=== PATIENT | female | born 1995 | race African-American/Black ===

== ENCOUNTER 2016-06-30 23:29 | Inpatient (IN) | payer MEDICAID ==
[~2016-06-30] VITALS: Ht 149.9 cm; Wt 63.6 kg
[~2016-06-30 23:29] MED LIST: NO HOME MEDICATIONS; PRENATAL MVI; PROFERRIN ES12 MG PO
[2016-07-01] VITALS (38 sets, daily range): BP systolic 103–141; BP diastolic 57–93; PULSE 60–116; TEMP 97.9–98.5
[2016-07-01 00:38] LABS: BASO % 0.2 % (0.0-2.0); EOS % 0.3 % (0-4.0); GRAN # 7.9 (1.4-6.5); GRAN % 72.9 % (42.2-75.2); LYMPH # 1.9 (1.2-3.4); LYMPH % 17.5 % (20.0-51.0); MEAN CELL VOLUME 66 fl (80.0-100.0); MEAN CORPUSCULAR HGB CONC 32 g/dl (33.0-37.0); MEAN PLATELET VOLUME 11.1 fl (7.4-10.4); MONO # 0.9 (0.1-0.6); MONO % 8.5 % (1.7-9.3); PLATELET COUNT 373 K/mm3 (130-400); RED BLOOD COUNT 4.63 M/mm3 (4.10-5.30); REDCELL DISTRIBUTION WIDTH-CV 18.2 % (11.5-14.5); WHITE BLOOD COUNT 10.8 K/mm3 (4.8-10.8)
[2016-07-01 00:39] LABS: HEMATOCRIT 30.7 % (37.0-47.0); HEMOGLOBIN 9.9 g/dl (12.5-16.0); MEAN CORPUSCULAR HEMOGLOBIN 21 pg (27.0-31.0)
[2016-07-01] MEDS ORDERED: IRON325 MG PO (00:53)
[2016-07-02 07:00] VITALS: BP 110/66; PULSE 78; TEMP 98.9
[2016-07-02 08:21] LABS: HEMATOCRIT 28.1 % (37.0-47.0); HEMOGLOBIN 8.8 g/dl (12.5-16.0)
[2016-07-02 09:22] VITALS: BP 110/66; PULSE 78; TEMP 98.9
[2016-07-02] MEDS ORDERED: IBU600 MG PO (11:44)
[2016-07-02] MEDS ORDERED: PERCOCET 325 MG1 TA2 PO (11:44)
[2016-07-02 15:33] VITALS: BP 100/73; PULSE 83; TEMP 99
[2016-07-02 22:00] VITALS: BP 116/73; PULSE 75; TEMP 97.4
[2016-07-03 07:15] VITALS: BP 119/65; PULSE 62; TEMP 97.9
== END 2016-07-03 13:10 | disposition home or self-care (01) | DRG 775 ==
LOC: LDRO 23:29 → LDR 07-01 00:01 → OB 07-01 00:01
PROVIDERS: Obstetrics & Gynecology
PROC: 10E0XZZ Delivery of Products of Conception, External Approach (ICD-10-PCS; principal; 2016-07-01)
PROC: 0KQM0ZZ Repair Perineum Muscle, Open Approach (ICD-10-PCS; 2016-07-01)
DX: O99.02 Anemia complicating childbirth (principal); D57.3 Sickle-cell trait; D56.3 Thalassemia minor; O70.1 Second degree perineal laceration during delivery; Z3A.39 39 weeks gestation of pregnancy; Z37.0 Single live birth
CPT/HCPCS: J2590; J2795; J7120

== ENCOUNTER 2018-04-29 09:04 | Emergency (ER) | payer SELFPAY ==
[~2018-04-29] VITALS: Ht 149.9 cm; Wt 53.6 kg
[~2018-04-29 09:04] MED LIST changes: +IBU600 MG PO; +IRON325 MG PO; +PERCOCET 325 MG1 TA2 PO
[2018-04-29 09:07] VITALS: TEMP 98.9
[2018-04-29 09:30] LABS: BASO % 0.4 % (0.0-2.0); EOS % 0.5 % (0-4.0); GRAN # 5.4 (1.4-6.5); GRAN % 67.2 % (42.2-75.2); HEMOGLOBIN 10.5 g/dl (12.5-16.0); LYMPH % 24.3 % (20.0-51.0); MEAN CELL VOLUME 66 fl (80.0-100.0); MEAN CORPUSCULAR HEMOGLOBIN 22 pg (27.0-31.0); MEAN CORPUSCULAR HGB CONC 33 g/dl (33.0-37.0); MEAN PLATELET VOLUME 9.9 fl (7.4-10.4); MONO # 0.6 (0.1-0.6); MONO % 7.2 % (1.7-9.3); PLATELET COUNT 412 K/mm3 (130-400); RED BLOOD COUNT 4.88 M/mm3 (4.10-5.30); REDCELL DISTRIBUTION WIDTH-CV 18.3 % (11.5-14.5)
[2018-04-29 09:40] LABS: COLLECTION METHOD CLEAN CATCH
[2018-04-29 09:43] LABS: ALBUMIN 4.5 gm/dL (3.5-5.0); BILIRUBIN,TOTAL 0.8 mg/dL (0.0-1.0); CALCIUM 9.3 mg/dL (8.4-10.2); CREATININE, serum 0.54 mg/dL (0.52-1.25); POTASSIUM 4.4 mmol/L (3.4-5.0); TOTAL PROTEIN 7.9 gm/dL (6.4-8.2)
[2018-04-29 09:47] LABS: PH 7 (5-8); SQUAMOUS EPITHELIAL 0-2 /hpf; URINE APPEARANCE Clear; URINE BACTERIA Rare /hpf; URINE BILIRUBIN Negative (NEGATIVE); URINE BLOOD Negative (NEGATIVE); URINE COLOR Colorless; URINE GLUCOSE Negative (NEGATIVE); URINE KETONE Negative (NEGATIVE); URINE LEUKOCYTE ESTERASE Negative (NEGATIVE); URINE NITRATE Negative (NEGATIVE); URINE PROTEIN(semi-quant) Negative (NEGATIVE); URINE RBC None Seen /hpf; URINE UROBILINOGEN Negative (NEGATIVE)
[2018-04-29 11:02] VITALS: BP 99/79; PULSE 65
== END 2018-04-29 11:03 | disposition home or self-care (01) ==
LOC: COL.ER 09:04
PROVIDERS: Physician Assistant
DX: O26.891 Other specified pregnancy related conditions, first trimester (principal); K59.00 Constipation, unspecified; R10.30 Lower abdominal pain, unspecified; Z3A.01 Less than 8 weeks gestation of pregnancy

== ENCOUNTER 2018-12-20 08:54 | Outpatient (CLI) | payer BC ==
[~2018-12-20] VITALS: Ht 149.9 cm; Wt 65.5 kg
--- NOTE | 2018-12-20 09:05 | NUR ---
Pt here from ER with c/o SROM at 0400 this AM. Pt unsure and states "I dont know if it has broke all the way." Pt room LDR 3 via wheelchair and to [facility]. SVE: /-2 and amniotrace negative. No fluid noted with exam. FHR reactive. Pt denies having regular contractions. Assessment complete, VSS. Will notify physician communications director today.
[2018-12-20 09:13] VITALS: BP 118/78; PULSE 96; TEMP 98.7
[2018-12-20] MEDS ORDERED: FERROUS SU325 MG/TAB PO (09:21)
--- NOTE | 2018-12-20 09:40 | NUR ---
Dr Hancock here and updated on pt status. Reviewed FHR and orders received to dc home. 0955:Discharge instructions given to pt, verbalizes understanding. Pt to personal vehicle.
== END 2018-12-20 09:55 | disposition home or self-care (01) ==
LOC: LDRO 08:54 → LDR 09:05 → LDRO 09:55
DX: Z34.83 Encounter for supervision of other normal pregnancy, third trimester (principal); Z3A.40 40 weeks gestation of pregnancy
CPT/HCPCS: OP

== ENCOUNTER 2018-12-21 00:44 | Outpatient (CLI) | payer BC ==
[~2018-12-21] VITALS: Ht 165.1 cm; Wt 65.9 kg
[~2018-12-21 00:44] MED LIST changes: +FERROUS SU325 MG/TAB PO
[2018-12-21 01:10] VITALS: BP 125/86; PULSE 78; TEMP 98.1
[2018-12-21 01:20] VITALS: BP 125/86; PULSE 78; TEMP 98.1
[2018-12-22] MEDS ORDERED: IBU600 MG PO (08:35)
[2018-12-22] MEDS ORDERED: PERCOCET 325 MG1 TA2 PO (08:36)
== END 2018-12-21 02:17 | disposition home or self-care (01) ==
LOC: LDRO 00:44
DX: O62.9 Abnormality of forces of labor, unspecified (principal); Z3A.40 40 weeks gestation of pregnancy

== ENCOUNTER 2018-12-21 04:38 | Inpatient (IN) | payer BC ==
[~2018-12-21] VITALS: Ht 152.4 cm; Wt 65.5 kg
[2018-12-21] VITALS (31 sets, daily range): BP systolic 93–153; BP diastolic 51–97; PULSE 64–104; TEMP 97.5–98.9
[2018-12-21 05:23] LABS: BASO % 0.3 % (0.0-2.0); EOS # 0.1 (0.0-0.7); EOS % 0.9 % (0-4.0); GRAN # 7.2 (1.4-6.5); GRAN % 71.7 % (42.2-75.2); HEMOGLOBIN 10.5 g/dl (12.5-16.0); LYMPH # 1.8 (1.2-3.4); LYMPH % 18.2 % (20.0-51.0); MEAN CELL VOLUME 70 fl (80.0-100.0); MEAN CORPUSCULAR HEMOGLOBIN 22 pg (27.0-31.0); MEAN CORPUSCULAR HGB CONC 32 g/dl (33.0-37.0); MEAN PLATELET VOLUME 10.9 fl (7.4-10.4); MONO # 0.8 (0.1-0.6); MONO % 8.2 % (1.7-9.3); PLATELET COUNT 359 K/mm3 (130-400); RED BLOOD COUNT 4.74 M/mm3 (4.10-5.30); REDCELL DISTRIBUTION WIDTH-CV 19.1 % (11.5-14.5)
[2018-12-21 05:27] LABS: HEMATOCRIT 33.1 % (37.0-47.0)
--- NOTE | 2018-12-21 11:04 | NUR ---
Pt calling out with increase of pressure. SVE per this RN C/+2. Dr. Cordero requested to unit. 1117-Vaginal delivery attended by Dr. Cordero with mild shoulder dystocia less than 30 seconds. Delivery performed with Parrish movement. Cord clamped x 2 and cut from umbilicus. Infant dried and placed on mother's abdomen. Apgars 8/9/9. Care of to Shane Henderson RN. 1120- of placenta. Pitocin bolus infusing. Fundus firm at umbilicus. Bleeding WNL. First degree laceration repair perfomed by Dr. Cordero. Pericare performed. Ice pack applied. Bed locked in low position. Call light within reach. Pt updated on POC. Safety reviewed. No questions or concerns at this time.
[2018-12-22 00:30] VITALS: BP 118/77; PULSE 88; TEMP 98.3
[2018-12-22 08:00] VITALS: BP 112/76; PULSE 78; TEMP 98.3
[2018-12-22 08:18] LABS: HEMATOCRIT 29.7 % (37.0-47.0); HEMOGLOBIN 9.6 g/dl (12.5-16.0)
[2018-12-22] MEDS ORDERED: IBU600 MG PO (08:35)
[2018-12-22] MEDS ORDERED: PERCOCET 325 MG1 TA2 PO (08:36)
--- NOTE | 2018-12-22 10:36 | NUR ---
Initial visit; Parents thanked [employer] for offering congratulations and God 's blessings for the of their daughter. [employer] thanked family for choosing [facility].
== END 2018-12-22 13:40 | disposition home or self-care (01) | DRG 807 ==
LOC: LDRO 04:38 → LDR 04:53 → OB 14:00
PROVIDERS: Obstetrics & Gynecology; ADMIT Student in an Organized Health Care Education/Training Program
PROC: 10E0XZZ Delivery of Products of Conception, External Approach (ICD-10-PCS; principal; 2018-12-21)
PROC: 0HQ9XZZ Repair Perineum Skin, External Approach (ICD-10-PCS; 2018-12-21)
DX: O42.02 Full-term premature rupture of membranes, onset of labor within 24 hours of rupture (principal); Z37.0 Single live birth; Z3A.40 40 weeks gestation of pregnancy; O48.0 Post-term pregnancy; D57.3 Sickle-cell trait; O99.02 Anemia complicating childbirth; D64.9 Anemia, unspecified; O66.0 Obstructed labor due to shoulder dystocia; O70.0 First degree perineal laceration during delivery
CPT/HCPCS: J1200; J2590; J2795; J7120

== ENCOUNTER 2021-10-07 18:23 | Outpatient (CLI) | payer MEDICAID ==
[~2021-10-07] VITALS: Ht 149.9 cm; Wt 69.5 kg
--- NOTE | 2021-10-07 18:30 | NUR ---
1830- PATIENT AMBULATORY TO THE UNIT. ORIENTATED TO ROOM AND CHANGED INTO CLEAN GOWN. PATIENT OF DR. FRANKS WHO IS A AT 39.2. PATIENT REPORTS LEAKING FOR THE LAST COUPLE OF DAYS, BUT TODAY HAD MORE LEAKING THAN THE PREVIOUS DAYS AND DECIDED TO COME GET CHECKED OUT. DENIES BLEEDING OR CONSISTENT CONTRACTIONS. REPORTS GFM. 1836- EFM AND TOCO ON AND TRACING. VITALS TAKEN, ASSESSMENT COMPLETED. 184- SVE /-3, AMNIOTRACE NEGATIVE. DISCUSSED POSSIBLE PLANS OF CARE AND ADVISED WOULD CALL PROVIDER AND LET HER KNOW. SHE VERBALIZED UNDERSTANDING WITH NO FURTHER QUESTIONS. CALL LIGHT WITHIN REACH. 1848- CALLED PROVIDER, SEE PHYSICIAN NOTIFICATION. 1855- EFM AND TOCO OFF. 20 MINUTES OF REACTIVE STRIP. DISCHARGE INSTRUCTIONS TO PATIENT AND SHE VERBALIZED UNDERSTANDING WITH NO FURTHER QUESTIONS. 1902- PATIENT AMBULATORY OFF UNIT.
[2021-10-07 18:56] VITALS: BP 113/74; PULSE 104; TEMP 98.4
== END 2021-10-07 19:03 | disposition home or self-care (01) ==
LOC: LDRO 18:23
DX: Z34.93 Encounter for supervision of normal pregnancy, unspecified, third trimester (principal); Z3A.39 39 weeks gestation of pregnancy

== ENCOUNTER 2021-10-11 23:02 | Inpatient (IN) | payer MEDICAID ==
[~2021-10-11] VITALS: Ht 149.9 cm; Wt 69.1 kg
--- NOTE | 2021-10-11 23:10 | NUR ---
G3L2 at 39 weeks and 6 days arrives to unit ambulatory with complaint of contractions. Pt reports having contractions about every 10 minutes. Also states that she is having burning with urination and feels like she is not fully emptying her bladder. Pt has had 2 previous uncomplicated vaginal deliveries. Pt denies problems this . Reports losing her mucous plug today but no leakage of fluid like her water broke. Reports good movement. Clean gown on. Pt oriented to room, call light within reach, bed in low and locked position. US and toco explained and applied. Admission assessment started. Vital signs obtained. SVE 3-4/90/-3, membranes intact.
[2021-10-11 23:30] VITALS: BP 113/78; PULSE 91; TEMP 98.3
[2021-10-12] VITALS (40 sets, daily range): BP systolic 89–139; BP diastolic 51–97; PULSE 76–109; TEMP 97.3–99.1
--- NOTE | 2021-10-12 00:30 | NUR ---
Category 1 FHR tracing obtained. Monitors off for patient to ambulate.
[2021-10-12 00:41] LABS: COLLECTION METHOD CLEAN CATCH
[2021-10-12 00:48] LABS: MUCOUS Present (NOT PRESENT); PH 6 (5-8); SQUAMOUS EPITHELIAL 0-2 /hpf (0-10); URINE APPEARANCE Clear (CLEAR/HAZY); URINE BACTERIA None Seen /hpf (NONE SEEN); URINE BILIRUBIN Negative (NEGATIVE); URINE BLOOD 1+ (NEGATIVE); URINE COLOR Yellow (YELLOW); URINE GLUCOSE Negative (NEGATIVE); URINE KETONE Negative (NEGATIVE); URINE LEUKOCYTE ESTERASE Negative (NEGATIVE); URINE NITRATE Negative (NEGATIVE); URINE PROTEIN(semi-quant) Negative (NEGATIVE)
--- NOTE | 2021-10-12 02:20 | NUR ---
18G IV started in right wrist. Admission labs obtained off IV start. Lactated Ringers infusing to gravity. Consents reviewed and signed with patient and spouse, verbalized understanding.
[2021-10-12 02:41] LABS: BASO % 0.2 % (0.0-2.0); EOS # 0.1 K/mm3 (0.0-0.7); EOS % 0.9 % (0.0-4.0); GRAN # 8.1 K/mm3 (1.4-6.5); LYMPH # 1.9 K/mm3 (1.2-3.4); LYMPH % 16.8 % (20.0-51.0); MEAN CELL VOLUME 71 fl (80.0-100.0); MEAN CORPUSCULAR HEMOGLOBIN 23 pg (27-31); MEAN CORPUSCULAR HGB CONC 32 g/dl (33.0-37.0); MEAN PLATELET VOLUME 10.5 fl (7.4-10.4); MONO % 8.6 % (1.7-9.3); PLATELET COUNT 329 K/mm3 (130-400); RED BLOOD COUNT 4.36 M/mm3 (4.10-5.30); REDCELL DISTRIBUTION WIDTH-CV 19.3 % (11.5-14.5)
--- NOTE | 2021-10-12 02:52 | NUR ---
0245 - MOHSEN Alatorre at bedside for epidural placement. Epidural procedure, risks, and benefits reviewed with patient and spouse. Pt positioned to sitting on edge of bed. 0252 - Single shot by MOHSEN Alatorre. Pt denies any adverse reactions. 0255 - Pt positioned to wedge left for comfort. Educated on safety precautions. Bed in low and locked position, call light within reach. See anesthesia record.
--- NOTE | 2021-10-12 03:10 | NUR ---
Koo catheter placed at this time to dependent drainage. Clear, yellow urine out. Secured to leg with statlock. SVE 5-6/90/-3 with bulging bag of water.
--- NOTE | 2021-10-12 06:30 | NUR ---
0632 Dr. Lopez here, visits with patient. [address] Lopez. Moderate amount of clear fluid noted. Pad changed.
[2021-10-12 06:46] LABS: TRICYCLIC ANTIDEPRESS URINE NEGATIVE
--- NOTE | 2021-10-12 08:05 | NUR ---
0805-Assumed care of patient. Patient comfortable LL w/Peanut ball. Spouse,Jacques at bedside. Pitocin infusing per orders current rate 6mu/min.
--- NOTE | 2021-10-12 09:10 | NUR ---
0910-Pitocin increased to 10mu/min per MD order. Patient reports pressure. SVE /-2 0917-Updated MD of patients exam and increasing pressure. 0923-Patient now complete and 0 station. Updated MD and requested for delivery FHR with decel down to 100bpm at this time. Pitocin decreased to 6mu/min. 33-Began pusing with ptaient through contraction. Patient moves vertex well. 35-Dr. Lopez to room. Patient continues pushing with contraction moving vertex well. Set up for delivery. 36-Spontaneous delivery of head with continued pushing efforts of pateint and positioning to Parrish to assist with body delivery at [address] Lopez. Viable female to mothers abdomen. Cord clamped x2 by MD and cut by father of infant. Care of infant assumed by ANGELINA Delgado Apgars 8/9/9. 0941-Spontaneous delivery of intact placenta by MD. Fundal massage firm. Lochia WNL. EBL 150ml. Pitocin bolus per MD order and protocol. Perineum intact. Aubree care provided. Updated on plan of care and safety.
--- NOTE | 2021-10-12 11:25 | NUR ---
1125-Patient ambulatory to bathroom with steady gait. Unable to void. Aubree care provided and clean gown. Patient amublates with steady gait down full length of hallway to room 218. Oriented to room and updated on plan of care and safety.
--- NOTE | 2021-10-12 21:40 | NUR ---
REPORT RECEIVED. ASSUMED CARE OF PATIENT AND .
[2021-10-13 01:40] VITALS: BP 116/82; PULSE 79; TEMP 97.5
[2021-10-13 05:00] VITALS: BP 129/83; PULSE 67; TEMP 97.5
[2021-10-13 09:40] VITALS: BP 108/69; PULSE 75; TEMP 97.9
[2021-10-13] MEDS ORDERED: IBU800 M1 PO (11:47)
== END 2021-10-13 12:40 | disposition home or self-care (01) | DRG 806 ==
LOC: LDRO 23:02 → LDR 23:10 → LDRO 10-12 01:50 → LDR 10-12 01:51 → OB 10-12 11:25
PROVIDERS: ADMIT Student in an Organized Health Care Education/Training Program
PROC: 10E0XZZ Delivery of Products of Conception, External Approach (ICD-10-PCS; principal; 2021-10-12)
DX: O99.02 Anemia complicating childbirth (principal); O99.323 Drug use complicating pregnancy, third trimester; Z37.0 Single live birth; D64.9 Anemia, unspecified; D56.3 Thalassemia minor; O99.344 Other mental disorders complicating childbirth; F41.9 Anxiety disorder, unspecified; F12.90 Cannabis use, unspecified, uncomplicated; Z3A.40 40 weeks gestation of pregnancy
CPT/HCPCS: OP; J1200; J2590; J2795; J7120